=== PATIENT | male | born 1950 | race Caucasian/White ===

== ENCOUNTER 2024-11-23 09:40 | Emergency (ER) | payer OTHER, SELFPAY ==
[2024-11-23 10:03] VITALS: BP 136/84; PULSE 74; RESP 20; TEMP 37.1; O2SAT 95; BMI 36.8
--- NOTE | 2024-11-23 10:15 | EDNOTE_ITS ---
ED Wound/Laceration-RME/HPI General Chief Complaint: Wound/Laceration Stated Complaint: wounds on left foot, not healing Time Seen by Provider: 11/23/24 09:44 Arrival date/time: 11/23/24 09:40 74-year-old male with history of diabetes presents emergency department today for complaints of sores to his left foot and left cardenas patient for symptoms ongoing for last couple of weeks Limitations: no limitations Related Data Previous Rx's ?Medication ?Instructions ?Recorded clindamycin HCl 300 mg capsule 300 mg PO TID 7 days #2 1 caps 11/23/24 mupirocin 2 % topical ointment 1 applic topical TID 10 days #22 11/23/24 grams Allergies Allergy/AdvReac Type Severity Reaction Status Date / Time No Known Allergies Allergy Verified 11/23/24 09:42 Review of Systems Review of Systems Systems Reviewed: All systems reviewed, normal except as documented Constitutional Constitutional: Reports system reviewed and no additional complaints, except as documented, Denies fever(s) and Denies headache(s) Eyes Eyes: Reports system reviewed and no additional complaints, except as documented and Denies blurry vision ENT Ears, Nose, Mouth, and Throat: Reports system reviewed and no additional complaints, except as documented, Denies headache(s), Denies nasal congestion and Denies nasal discharge Cardiovascular Cardiovascular: Reports system reviewed and no additional complaints, except as documented, Denies chest pain and Denies dyspnea Respiratory Respiratory: Reports system reviewed and no additional complaints, except as documented, Denies chest congestion, Denies cough and Denies dyspnea Gastrointestinal Gastrointestinal: Reports system reviewed and no additional complaints, except as documented and Denies abdominal pain Musculoskeletal Musculoskeletal: Reports system reviewed and no additional complaints, except as documented, Denies deformity, Denies joint swelling and Reports other (Wounds left leg) Integumentary/Breasts Skin/Breast: Reports system reviewed and no additional complaints, except as documented, Denies rash and Reports wounds (Wounds left leg) Neurologic Neurologic: Reports system reviewed and no additional complaints, except as documented, Reports as per HPI and Denies headache(s) Past Medical History Social History SMOKING STATUS: Never smoker ED Exam General Limitations: Present no limitations General appearance: Present alert and in no apparent distress Head Head exam: Present atraumatic Eye Eye exam: Present normal appearance, PERRL and EOMI ENT ENT exam: Present normal exam, normal oropharynx and mucous membranes moist Neck Neck exam: Present normal inspection, full ROM and trachea midline Chest Chest inspection: Present normal inspection and symmetric chest wall rise Respiratory Respiratory exam: Present normal lung sounds bilaterally Cardiovascular Cardiovascular exam: Present regular rate, normal rhythm and normal heart sounds Abdominal Exam Abdominal exam: Present soft and normal bowel sounds Extremities Exam Extremities exam: Present normal inspection and full ROM Back Exam Back exam: Present normal inspection and full ROM Neurological Exam Neurological exam: Present alert, oriented X3 and CN II-XII intact Psychiatric Psychiatric exam: Present normal affect and normal mood Skin Skin exam: Present warm, dry and other (Wounds left leg) Course Quality Measures none Orders Category Date Time Status Consult [employer] [facility] Care 11/23/24 10:15 Completed Referral Wound Care Stat Cons 11/23/24 10:16 Active Vital Signs Vital signs: Vital Signs Temperature 98.7 F 11/23/24 10:03 Pulse Rate 74 11/23/24 10:03 Respiratory Rate 20 11/23/24 10:03 Blood Pressure 136/84 H 11/23/24 10:03 Pulse Oximetry (%) 95 11/23/24 10:03 Oxygen Delivery Method Room Air 11/23/24 10:03 O2 saturation 95% on room air within normal limits Wound / Laceration MDM Narrative MDM Narrative:: 74-year-old male with history of diabetes presents emergency department today for complaints of sores to his left foot and left cardenas patient for symptoms ongoing for last couple of weeks On exam patient does have superficial skin sores to his left foot as well as his left cardenas On exam patient has no coolness or paler On exam patient has no evidence of infection no redness or warmth As patient is diabetic and has multiple skin sores patient be treated the course of antibiotics Consultation: I spoke with social media community manager who made a referral to the wound care center for the patient patient states understanding follow-up with wound care center Patient discharged home in no distress to follow-up with wound care center in the next 24 to 48 hours and for any worsening symptoms to return to the ER immediately Patient data External records reviewed:: [facility] previous records Clinical information provided by:: patient Social determinants that could affect healthcare access:: none Patient has the following chronic illnesses:: History How is presenting disease/condition affected by chronic disease/condition?: exacerbated by Evaluation data The following diagnostics were reviewed and interpreted by me:: other (specify) Lab and/or radiology exams considered but not ordered:: Consider not ordered Interpretation Summary: N/A Medications / Prescriptions Medications or Prescriptions considered but not ordered:: Given Medication administrations:: Given Consultations Consultation(s) initiated? (list below): No Diagnosis Wound Differential Diagnosis: laceration, abrasion, avulsion of skin and other (Skin sores, osteomyelitis) Most likely diagnosis given after review of the tests above:: Skin sores Admission Indicated Admission indicated?: not indicated Admission Request Was there a request for admission?: No Disposition Plan Disposition Plan: Discharge Discharge Attestation Discharge Attestation: The patient and all family members were given an opportunity to ask questions and understood the discharge instructions. Discharge instructions specifically effects, indications for sooner follow up or return to the emergency department, and the expected course of current diagnosis. Patient condition: Stable Discharge Plan Plan Patient Disposition: HOME (Self Care) Discharge Disposition comment: Stable Prescriptions/Referrals Prescriptions/Med Rec: New clindamycin HCl 300 mg capsule 300 mg PO TID 7 Days Qty: 21 0RF mupirocin 2 % ointment 1 applic topical TID 10 Days Qty: 22 0RF Problem List Clinical Impression: Skin sore Patient/Caregiver Discharge Instructions Additional Instructions: Please follow-up with wound care as discussed for worsening symptoms or concerns return immediately Print Language: Luxembourgish Stand Alone Forms: [employer] Award Info., Patient Portal Info Letter PA/OPHELIA Supervising Physician LUCY/OPHELIA Supervising Physician: Dr. bonilla
--- NOTE | 2024-11-23 10:15 | PC.CC ---
Addendum entered by Beth Arthur 11/23/24 11:07: NAYA Arthur faxed the Wound Care referral to [facility] wound care office. Pt will need to f/u with [facility] wound care to schedule an outpt appointment. Original Note: NAYA Arthur was asked by LUCY Nash to create a referral for the pt to wound care. ORVILLEW will need supporting documents such as provider notes stating the recommendations for eound care.
== END 2024-11-23 11:40 | disposition home or self-care (01) ==
LOC: SERX 10:48
PROVIDERS: Emergency Provider Emergency Medicine; PCP Family Medicine
DX: L98.9 Disorder of the skin and subcutaneous tissue, unspecified (principal); E11.9 Type 2 diabetes mellitus without complications
CPT/HCPCS: 99282